=== PATIENT | female | born 1960 | race Caucasian/White ===

== ENCOUNTER 2024-09-17 11:59 | Outpatient (CLI) | payer OTHER, SELFPAY ==
--- NOTE | ~2024-09-17 | CT_ITS ---
EXAMINATION: CT abdomen pelvis w con DATE: 09/17/2024 12:57 INDICATION: Constipation. Left lower quadrant abdominal pain. TECHNIQUE: Computed tomography (CT) of the abdomen and pelvis was performed with 100 mL Omnipaque 350 intravenous contrast. Automated exposure control and iterative reconstruction technique were employe d. The dose-length product was 548.95 mGy-cm. COMPARISON: None. FINDINGS: The visualized portions of lung bases demonstrate mild atelectasis. No pleural effusion. Th e heart size is normal. No pericardial effusion. There is a small sliding hiatal hernia. There is dif fuse hepatic steatosis. Pneumobilia is noted, likely secondary to sphincterotomy. There are changes o f cholecystectomy. The spleen, pancreas, adrenal glands, and left kidney are normal. There is an 11 m m cyst in right kidney. There are scattered diverticula in the colon. There is fat stranding around t he sigmoid colon, consistent with diverticulitis. There are no dilated loops of bowel. The appendix i s normal. There are no pathologically enlarged lymph nodes. There is trace pelvic ascites. There is s evere lumbar spondylosis. There is mild chronic anterior wedging of multiple vertebral bodies. Lumbar levoscoliosis is noted. IMPRESSION: 1. Acute sigmoid diverticulitis. No perforation or abscess. Reviewed, dictated and finalized at location A. ET ACCOUNTANT
--- OUTSIDE RECORDS SUMMARY | 2024-09-17 12:14 | XMS_ITS ---
Author Organization [facility] [facility] Address [address] [place] [address] Care Team Providers Care Tapping Machine Operator Automatic Name Role Phone ANITACONRADO CABALLERO Unavailable [phone] REASON FOR VISIT Skin Lesion Medications Medication SIG (Take, Route, Frequency, Duration) Notes Start Date End Date Status DICYCLOMINE HCL 20 MG TABS for -2 *Reorder from [facility] for eRx and Interaction Alerts* 04/10/2022 Active SUCRALFATE 1GM TAB for -2 *Reorder from [facility] for eRx and Interaction Alerts* 03/28/2022 Active OMEPRAZOLE 40 MG CPDR for -2 *Reorder from [facility] for eRx and Interaction Alerts* 04/03/2022 Active Problems Problem Type SNOMED Code ICD Code Onset Dates Problem Status W/U Status Risk Notes Problem 086572020 Hammer toe of left foot (M20.42) Active confirmed Vital Signs Height 65 in 05/01/2023 Weight 190 lbs 05/01/2023 BMI 31.61 kg/m2 05/01/2023 Height-cm 165.10 cm 05/01/2023 Weight-kg 86.18 kg 05/01/2023 Encounters Encounter Location Date Provider Diagnosis [facility] [address] [place] [address] 05/01/2023 CONRADO GU Abscess of foot without toes, left L02.612 and Hammer toe of left foot M20.42 Assessments Encounter Date Diagnosis (ICD Code) Assessment Notes Treatment Notes Treatment Clinical Notes Section Notes 05/01/2023 Abscess of foot without toes, left (ICD-10 - L02.612) Pt seen and evaluated. Discussed condition and treatment options. Discussed she has a lesion at that location, which could be putting pressure on the nerve. The lesion was incised and debrided, and all the purulence was cleaned and flushed out. No definitive foreign body noted. No need for anesthesia as it was superficial. The site was healed afterward, and pt expressed relief of pain. Pt to call with continued pain, may consider metatarsal pad. 05/01/2023 Hammer toe of left foot (ICD-10 - M20.42) Plan Of Treatment Treatment Notes Assessment Notes Abscess of foot without toes, left Pt se en and evaluated. Discussed condition and treatment options. Discussed she has a lesion at that location, which could be putting pressure on the nerve. The lesion was incised and debrided, and all the purulence was cleaned and flushed out. No definitive foreign body noted. No need for anesthesia as it was superficial. The site was healed afterward, and pt expressed relief of pain. Pt to call with continued pain, may consider metatarsal pad. Next Appt Details Follow Up: prn, Reason: Progress Notes * MOOK CRISOSTOMO ADOB:[birth year] (62 yo F)Acc No.[id number]:05/01/2023 Progress Notes Patient: MOOK AKINS Provider: Nila Gu DPM :1960 A ge:62 Y S ex:Female Date:05/01/2023 Address:[address] [place] [address] Subjective: * Chief Complaints: * S kin Lesion * HPI: F oot Pain: Relates she gets numbness on the lateral side of her left foot, which is unchanged. Relates she started getting burning to the toes on the left foot, near the third and fourth toes. Relates she has had a lot of problems recently with her knee and thinks its related. Relates she felt a knot recently around the area and thinks its related. * ROS: G eneral / Constitutional: Patient denies c hills, fatigue, fever, headache. ? E NT: Patient denies n jose congestion, sore throat. ? R espiratory: Patient denies c ough, chest pain, shortness of breath.? C ardiovascular: Patient denies c hest pain, claudication, palpitations.? G astrointestinal: Patient denies a bdominal pain, constipation, diarrhea, nausea, vomiting. * Medical History: * Surgical History: * Hospitalization/Major Diagno stic Procedure: * Social History: M igrated Social History: M igrated Social History: Smoking : Never , Recorded Date: 04/10/2022. * Medications: T akingOMEPRAZOLE 40 MG CPDR , Notes to Pharmacist: *Reorder from Medispan for eRx and Interaction Alerts*DICYCLOMINE HCL 20 MG TABS , Notes to Pharmacist: *Reorder from [facility] for eRx and Interaction Alerts*SUCRALFATE 1GM TAB , Notes to Pharmacist: *Reorder from [facility] for eRx and Interaction Alerts*Medication List reviewed and reconciled with the patientTaking OMEPRAZOLE 40 MG CPDR , Notes to Pharmacist: *Reorder from [facility] for eRx and Interaction Alerts*Taking DICYCLOMINE HCL 20 MG TABS , Notes to Pharmacist: *Reorder from [facility] for eRx and Interaction Alerts*Taking SUCRALFATE 1GM TAB , Notes to Pharmacist: *Reorder from [facility] for eRx and Interaction Alerts*Medication List reviewed and reconciled with the patient Objective: * Vitals: H t: 65 in, Wt:190lbs, BMI:31.61Index, Wt-k.18 kg, Ht-cm: 165.10 cm, Body Surface Area: 1.99. * Examination: D ermatologic: Skin findings: w arm and dry, no open ulcerations or interdigital macerations, bilateral. T here is a raised, discolored area of tissue sub third webspace / sulcus. When debrided, there is about 0.25cc of thick purulence, when cleaned out intact epithelial skin deep. V ascular: Dorsalis pedis pulse: p alpable, bilateral. Posterior tibial pulse: p alpable, bilateral. Temperature gradient: w arm. N eurologic: Gross sensation i ntact, bilateral. M usculoskeletal: Gait: m ildly antalgic. Foot morphology: r ectus. Deformities: l eft, with lesser digit hammer toes, reducible. Pain elicited with palpation of: t he location of the lesion(s). Assessment: * Assessment: 1. A bscess of foot without toes, left - L02.612 (Primary) 2 . H ammer toe of left foot - M20.42 Plan: * Treatment: * Procedure Codes: 1 0060 DRAINAGE OF SKIN ABSCESS * Follow Up: p rn * Billing Information: * Visit Code: * Procedure Codes: 23212 DRAINAGE OF SKIN ABSCESS. * Sign off status: Completed true * Provider: Nila Gu DPM Date: 0 05/01/2023 Generated for Amber bower/Fabiano/Jayeshitting on: 0 09/17/2024 12:14 PM NEWS WRITER History and Physical Notes * HPI (History of Present Illness) Category Sub-Category Detail Notes Category Not es Foot Pain Relates she get s numbness on the lateral side of her left foot, which is unchanged. Relates she started getting burning to the toes on the left foot, near the third and fourth toes. Relates she has had a lot of problems recently with her knee and thinks its related. Relates she felt a knot recently around the area and thinks its related. Examination Category Sub-Category Detail Notes Category Not es Dermatologic Skin findings: warm and dry, no open ulcerations or interdigital macerations, bilateral There is a raised, discolored area of tissue sub third webspace / sulcus. When debrided, there is about 0.25cc of thick purulence, when cleaned out intact epithelial skin deep Neurologic Gross sensation intact, bilateral Musculoskeletal Gait: mildly antalgic Foot morphology: rectus Deformities: left, with lesser di git hammer toes, reducible Pain elicited with palpation of: the loc ation of the lesion(s) Vascular Dorsalis pedis pulse: palpable, bilateral Temperature gradient: warm Posterior tibial pulse: palpable, bilate ral
--- OUTSIDE RECORDS SUMMARY | 2024-09-17 12:14 | XMS_ITS ---
Author Organization Unknown Address [address] [place], [place] [id number] Phone Care Team Providers Care Dulite Machine Bluer Name Role Phone GEORGES Hutton Attending Unavailable KARUNA BURROWS Primary Unavailable Immunization Immunization Date Status Additional Notes Code Code System influenza, unspecified formulation 05/17/2021 Completed 88 CVX Tdap 01/29/2024 Completed 115 CVX Influenza, recombinant, trivalent, PF 2021 Completed 155 CVX Influenza, recombinant, trivalent, PF 04/12/2024 Completed 155 CVX Influenza, recombinant, quadrivalent, PF 05/16/2020 Completed 185 CVX Influenza, recombinant, quadrivalent, PF 06/07/2021 Completed 185 CVX Influenza, recombinant, quadrivalent, PF 05/16/2022 Completed 185 CVX Influenza, recombinant, quadrivalent, PF 06/16/2023 Completed 185 CVX zoster recombinant 03/10/2024 Completed 187 CVX zoster recombinant 02/09/2024 Completed 187 CVX zoster recombinant 06/10/2024 Completed 187 CVX COVID-19, mRNA, LNP-S, PF, 1 00 mcg/0.5mL dose or 50 mcg/0.25mL dose 08/23/2021 Completed 207 CVX COVID-19, mRNA, LNP-S, PF, 3 0 mcg/0.3 mL dose 01/30/2021 Completed 208 CVX COVID-19, mRNA, LNP-S, PF, 3 0 mcg/0.3 mL dose 02/20/2021 Completed 208 CVX COVID-19, mRNA, LNP-S, PF, 3 0 mcg/0.3 mL dose 11/08/2021 Completed 208 CVX COVID-19, mRNA, LNP-S, bivalent, PF, 30 mcg/0.3 mL dose 06/13/2022 Completed 300 CVX COVID-19, mRNA, LNP-S, PF, sammy-sucrose, 30 mcg/0.3 mL 07/26/2023 Completed 309 CVX COVID-19, mRNA, LNP-S, PF, sammy-sucrose, 30 mcg/0.3 mL 04/16/2024 Completed 309 CVX Results CBC W/O DIFF - Collect Date/ Time: 09/01/2024 10:06 [facility] ID: [id number] [place], [place], [id number] LOINC: 19968-0 Test Value Unit Reference Range Code Code System Flag WBC 7.6 10^3uL L=4.8 H=10.8 RBC 4.64 10^6uL L=4.20 H=5.40 HEMOGLOBIN 13.9 g/dL L=12.0 H=16.0 718-7 LOINC HEMATOCRIT 42.1 VOL% L=37.0 H=47.0 4544-3 LOINC MCV 90.7 fL L=81.0 H=99.0 MCH 30.0 pg L=27.0 H=32.0 MCHC 33.0 g/dL L=32.0 H=36.0 PLATELETS 317 10^3uL L=100 H=400 07376-3 LOINC RDW 11.9 % L=11.7 H=15.5 COMPREHENSIVE METABOLIC PANE L - Collect Date/Time: 09/01/2024 10:06 [facility] ID: [id number] [place], [place], [id number] LOINC: 87465-7 Test Value Unit Reference Range Code Code System Flag FASTING NO BUN 14 mg/dL L=7 H=20 3094-0 LOINC CREATININE 0.70 mg/dL L=0.52 H=1.04 2160-0 LOINC GLUCOSE 115 mg/dL L=74 H=106 2345-7 LOINC H SODIUM 140 mmol/L L=132 H=144 2951-2 LOINC POTASSIUM 4.0 mmol/L L=3.5 H=5.1 2823-3 LOINC CHLORIDE 100 mmol/L L=98 H=107 2075-0 LOINC CO2 29.0 mmol/L L=22.0 H=30.0 2028-9 LOINC ANION GAP 15 L=10 H=20 05815-9 LOINC OSMOLALITY 291 mOs/kG L=280 H=296 50829-8 LOINC BUN/CREAT 20.0 3097-3 LOINC CALCIUM 9.9 mg/dL L=8.3 H=10.5 45079-0 LOINC AST 35 U/L L=15 H=46 1920-8 LOINC ALT 31 U/L L=9 H=72 1742-6 LOINC ALKALINE PHOS 80 U/L L=38 H=126 6768-6 LOINC TOTAL BILI 0.4 mg/dL L=0.2 H=1.3 1975-2 LOINC ALBUMIN 4.8 G/dL L=3.5 H=5.0 1751-7 LOINC TOTAL PROTEIN 8.8 g/L L=6.3 H=8.2 2885-2 LOINC H A/G RATIO 1.2 71934-1 LOINC AGE 64 57154-4 LOINC eGFR NON-AFR 90 ml/min eGFR AFR AMER 109 ml/min Social History Type Status Start Date End Date Code Code Syst em Smoking History Never smoker (Never Smoked) 491499351 SNOMED CT Smoking History Unknown if ever smoked [address] Sex Female Medications Medication Start Date End Date Route Frequency Dose Code Code System Medication Instructions Home Meds Dicyclomine HCl 10MG Oral Capsule 09/26/2017 Unknown ORAL NEEDED 10 MILLIGRAMS 554368 RxNorm TAKE 10 MILLIGRAMS ORAL NEEDED Vitamin D 1000IU Oral Tablet 09/26/2017 Unknown ORAL ONCE A DAY 1000 INTERNATIONAL UNITS 19930110 RxNorm TAKE 1000 INTERNATIONAL UNITS ORAL ONCE A DAY Carafate 1GM Oral Tablet 12/28/2021 Unknown ORAL FOUR TIMES A DAY 1 GM 20800417 RxNorm TAKE 1 GM ORAL FOUR TIMES A DAY MiraLAX 17GM/1Dose Oral Powder for Solution 12/28/2021 Unknown ORAL ONCE A DAY 1 unit(s) 354203 RxNorm TAKE 1 EACH ORAL ONCE A DAY Omeprazole 40MG Oral Capsule, Delayed Release 12/28/2021 Unknown ORAL TWICE A DAY 40 MILLIGRAMS 20020919 RxNorm TAKE 40 MILLIGRAMS ORAL TWICE A DAY ProAir HFA 0.09MG/1Actu ation Inhalation Suspension 12/28/2021 Unknown INHALAT ION NEEDED EVERY 4 HOURS 1 unit(s) 649308 RxNorm 1 EACH INHALATION NEEDED EVERY 4 HOURS Hospital Discharge Instructions Should you have any questions prior to discharge, please contact a member of your healthcare team. If you have left the hospital and have any questions, please contact your primary care physician. Reason For Referral No Data Found Allergies and Adverse Reactions Allergy Substance Reaction Severity Start Date Concern Status Code Code System SULFA (sulfonamide) NAUSEA (SNOMED-CT: null) Moderate Active SULFA (sulfonamide) Active 22149180 SNOMED-CT DARVON COMPOUND-65 Moderate Active STATINS (HMG-COA REDUCTASE INHIBITORS) Active DARVOCET NAUSEA (SNOMED-CT: null) Active No Known Drug Allergies Active 814627616 SNOMED-CT Plan of Treatment Upper GI W Small Intestine 02/19/2024 Encounters Encounter Diagnosis Start Date Code Code Sys tem Left lower quadrant pain 09/01/2024 SNO MED-CT Personal Care Team Section Performer Name Performer Role Active Date Inactive Christiano Ash PCP - Primary care physician 2022-08-19
--- OUTSIDE RECORDS SUMMARY | 2024-09-17 12:15 | XMS_ITS | Clinical Summary ---
Author Organization [facility] Address [address] [place] [address] Phone Care Team Providers Care Piece Cutter Name Role Phone Lindsey Brannon MD Primary Care Provider [phone] Allergies Active Allergy Reactions Criticality Noted Date Comments Other Unknown High Darvocet Medications ibuprofen (MOTRIN) 200 MG Tablet Take 200 mg by mouth every 8 hours as needed. 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 Gender Identity Not on file Sexual Orientation Not on file Last Filed Vital Signs Vital Sign Reading Time Taken Comments Blood Pressure - - Pulse - - Temperature 36.4 C (97.5 F) 02/18/2018 11:41 AM CDT Respiratory Rate - - Oxygen Saturation - - Inhaled Oxygen Concentration - - Weight 87.1 kg (192 lb) 02/18/2018 11:41 AM CDT Height 165.1 cm (5' 5 ) 02/18/2018 11:41 AM CDT Body Mass Index 31.95 02/18/2018 11:41 AM CDT Plan of Treatment Health Maintenance Due Date Last Done Comments Hepatitis C Virus (HCV) Screening 1960 TdaP Immunization 1960 Colonoscopy 2007 Colorectal Cancer Screening 2007 Cologuard 2012 Immunochemical Fecal Occult Blood 2012 Mammogram 2012 Pneumococcal Immunization (5 0+ years) (1 of 1 - PCV) 2012 Zoster Immunization (1 of 2) 2012 Influenza Immunization (#1) 2024 SARS-COV-2 Immunization (1 - 2023- season) 2024 Respiratory Syncytial Virus (RSV) Immunization (Adult) (1 - 1-dose 75+ series) 2037 Hepatitis B Immunization Aged Out No longer eligible based on patient's age to complete this topic Meningococcal Immunization (ACWY) Aged Out No longer eligible based on patient's age to complete this topic Pneumococcal Immunization Combined Aged Out No longer eligible based on patient's age to complete this topic Rotavirus Immunization Aged Out No lo nger eligible based on patient's age to complete this topic Insurance [facility] Care Teams Piece Cutter Relationship Specialty [place] [address] [place] [address] PCP - General Internal Medicine 06/25/17
--- OUTSIDE RECORDS SUMMARY | 2024-09-17 12:15 | XMS_ITS | Patient Health Record ---
Author Organization [facility] Address [address] [place] [address] Care Team Providers Care Education Administrator Name Role Phone CONRADO GU Unavailable [phone] Reason For Referral No Information Medications Medication SIG (Take, Route, Frequency, Duration) [...] Problem Status W/U Status Risk Notes Problem 711446128 Hammer toe of left foot (M20.42) Active confirmed Problem Tarsal tunnel syndrome (12817802) Tarsal tunnel syndrome, left lower limb (G57.52) 04/10/2022 Active confirmed Problem History of malignant neoplasm (984863214) Personal history of malignant neoplasm, unspecified (Z85.9) 04/10/2022 Active confirmed Plan Of Treatment No Information Insurance Providers Payer Name Payer Address Payer Phone Subscriber Number Group Number Insured Name Patient Relationship to Insured Coverage Start Date Coverage End Date [facility] [id number] [place] [address] [id number] MOOK CRISOSTOMO Self - patient is the insured
--- OUTSIDE RECORDS SUMMARY | 2024-09-17 12:16 | XMS_ITS | Clinical Summary ---
Author Organization [facility] Address [address] [place] [address] Care Team Providers Care Shearing Shed Hand Name Role Phone Lebron Lion DPM Unavailable [phone] Delicia Chase APNP Primary Care Provide r Jeanine Vasquez MD Unavailable Allergies Active Allergy Reactions Criticality Noted Date Comments Statins Joint Pain 05/01/2023 Medications omeprazole (PRILOSEC) 20 MG capsule Take 1 capsule (20 mg total) by mouth daily. Active dicyclomine (BENTYL) 20 MG tablet Take 1 tablet (20 mg total) by mouth. Active furosemide (LASIX) 20 MG tablet Take 1 tablet (20 mg total) by mouth daily. Take one tablet daily as needed for swelling 7 tablet 4 Active Additional Information Patient not taking.Reported on 03/11/2024 red yeast rice extract 600 MG Cap Take 500 mg by mouth daily. Active metoprolol succinate ER (TOPROL-XL) 25 MG 24 hr tablet Take 1 tablet (25 mg total) by mouth daily. 30 tablet 11 4 Active Active Problems Problem Noted Date Diagnosed Date Acute medial meniscus tear of left knee 05/13/20 23 Paroxysmal atrial fibrillation (CMS/HCC HHS/HCC) 04/30/2023 Chest discomfort 04/30/2023 Palpitations 04/30/2023 Primary osteoarthritis of left knee 04/29/2023 Lumbar radiculopathy 07/23/2021 Other spondylosis, cervical region 07/23/2021 Right foot pain 12/09/2018 Encounters Date Type Department Care Team Description 08/06/2024 Telephone [facility] [address] [place] [phone] Jeanine Vasquez MD Refill Request from Last 3 Months Family History Medical History Relation Comments No Known Problems Father Emphysema Mother Relation Status Comments Father Mother Social History Tobacco Use Types Packs/Day Years Used Date Smoking Tobacco: Never Smokeless Tobacco: Never Tobacco Cessation:Counseling Given: Not Answered Alcohol Use Standard Drinks/Week Comments Not Currently 0 (1 standard drink = 0.6 oz pur e alcohol) Comments Unknown Sex and Gender Information Value Date Recorded Sex Assigned at Female 04/29/2023 3:57 PM CDT Legal Sex Female 6:38 PM CDT Gender Identity Female 04/29/2023 3:57 PM CDT Sexual Orientation Straight 04/29/2023 3: 57 PM CDT Last Filed Vital Signs Vital Sign Reading Time Taken Comments Blood Pressure 120/74 03/15/2024 1:25 PM CDT Pulse 78 03/15/2024 1:25 PM CDT Temperature - - Respiratory Rate 16 03/15/2024 1:25 PM CDT Oxygen Saturation 96% 03/15/2024 1:25 PM CDT Inhaled Oxygen Concentration - - Weight 91.5 kg (201 lb 12.8 oz) 03/15/2024 1:25 PM CDT Height 165.1 cm (5' 5 ) 03/15/2024 1:25 PM CDT Body Mass Index 33.58 03/15/2024 1:25 PM CDT Plan of Treatment Upcoming Encounters Date Type Department Care Team (Late st Contact Info) Description 11/19/2024 9:30 AM CDT Office Visit [facility] [address] [place] [phone] Danish Matute, PA-C [address] [place] [phone] 03/17/2025 10:15 AM CDT Office Visit [facility] [address] [phone] Jeanine Vasquez MD [address] [place] [address] Health Maintenance Due Date Last Done Comments Colorectal Cancer Screening Colonoscopy (10 Years) 1962 Annual Physical 1965 Hepatitis C 1980 Mammogram Screening 2002 RSV Immunization or 60+ Years (1 - Risk 60-74 years 1-dose series) 2022 COVID-19 Vaccine ( season) 2024 07/26/2023, 06/13/2022, 11/08/2021, Additional history exists Zoster Vaccines (2 of 2) 05/05/2024 03/10/2024 Influenza Adult (#1) 2024 06/16/2023, 05/16/2022, 06/07/2021, Additional history exists DTaP, Tdap and Td Vaccines (2 - Td or Tdap) 01/28/2034 01/29/2024 Meningococcal B Vaccine Aged Out No l onger eligible based on patient's age to complete this topic Meningococcal Vaccine Aged Out No nicholas luh eligible based on patient's age to complete this topic Pneumococcal Vaccine: Pediatrics (0 to 5 Years) and At-Risk Patients (6 to 64 Years) Aged Out No longer eligible based on patient's age to complete this topic RSV Immunizations Under 20 Months Aged Out No longer eligible based on patient's age to complete this topic Insurance [facility] Care Teams Shearing Shed Hand Relationship Specialty Start Date End Date Delicia Chase APNP [address] [place] [address] PCP - General NURSE PRACTITIONER 04/01/23 Lebron Lion DPM [address] [place] [phone] PODIATRY/SURGERY 04/01/23 Jeanine Vasquez MD [address] [place] [address] Consulting Physician CARDIOVASCULAR DISEASE 11/05/23
--- OUTSIDE RECORDS SUMMARY | 2024-09-17 12:16 | XMS_ITS ---
Author Organization Unknown Address [address] [place], [place] [id number] Phone Care Team Providers Care Front Office Agent Name Role Phone SAI BURGER Attending Unavailable KARUNA BURROWS Primary Unavailable Immunization [...] mL 04/16/2024 Completed 309 CVX Results CBC W/ DIFF - Collect Date/T saji: 12/29/2023 08:42 [facility] ID: [id number] [id number] [place], [place], [id number] LOINC: 24570-9 Test Value Unit Reference Range Code Code System Flag WBC 4.8 10^3uL L=4.8 H=10.8 RBC 4.57 10^6uL L=4.20 H=5.40 HEMOGLOBIN 13.9 g/dL L=12.0 H=16.0 718-7 LOINC HEMATOCRIT 41.4 VOL% L=37.0 H=47.0 4544-3 LOINC MCV 90.6 fL L=81.0 H=99.0 MCH 30.4 pg L=27.0 H=32.0 MCHC 33.6 g/dL L=32.0 H=36.0 PLATELETS 274 10^3uL L=100 H=400 20172-4 LOINC RDW 12.1 % L=11.7 H=15.5 %GRAN 48.9 % L=40.0 H=70.0 52815-2 LOINC %LYMPH 40.0 % L=20.0 H=45.0 736-9 LOINC %MONO 7.8 % L=2.0 H=10.0 04969-1 LOINC %EOS 2.7 % L=0.0 H=6.0 713-8 LOINC %BASO 0.4 % L=0.0 H=3.0 706-2 LOINC #NEUT 2.3 10^3uL L=1.9 H=7.6 05490-2 LOINC #LYMPH 1.9 10^3uL L=0.9 H=4.9 80260-9 LOINC #MONO 0.4 10^3uL L=0.1 H=0.9 45340-3 LOINC #EOS 0.1 10^3uL L=0.0 H=0.6 712-0 LOINC #BASO 0.02 10^3uL L=0.00 H=0.10 14236-2 LOINC #IM GRANS 0.0 10^3uL L=0.0 H=7.0 38176-4 LOINC %IM GRANS 0.2 % L=0.0 H=5.0 27959-8 LOINC %NRB 0.0 L=0.0 H=0.2 70098-5 LOINC #NRB 0.000 L=0.000 H=0.012 54374-5 LOINC MANUAL DIFF NOT INDICATED RBC MORPH NOT INDICATED COMPREHENSIVE METABOLIC PANE L - Collect Date/Time: 12/29/2023 08:42 [facility] ID: [id number] [id number] [place], [place], [id number] LOINC: 59531-6 Test Value Unit Reference Range Code Code System Flag FASTING YES BUN 19 mg/dL L=7 H=20 3094-0 LOINC CREATININE 0.70 mg/dL L=0.52 H=1.04 2160-0 LOINC GLUCOSE 108 mg/dL L=74 H=106 2345-7 LOINC H SODIUM 139 mmol/L L=132 H=144 2951-2 LOINC POTASSIUM 4.1 mmol/L L=3.5 H=5.1 2823-3 LOINC CHLORIDE 101 mmol/L L=98 H=107 2075-0 LOINC CO2 28.0 mmol/L L=22.0 H=30.0 2028-9 LOINC ANION GAP 14 L=10 H=20 03438-3 LOINC OSMOLALITY 291 mOs/kG L=280 H=296 76293-7 LOINC BUN/CREAT 27.1 3097-3 LOINC CALCIUM 9.8 mg/dL L=8.3 H=10.5 65997-7 LOINC AST 45 U/L L=15 H=46 1920-8 LOINC ALT 42 U/L L=9 H=72 1742-6 LOINC ALKALINE PHOS 92 U/L L=38 H=126 6768-6 LOINC TOTAL BILI 0.6 mg/dL L=0.2 H=1.3 1975-2 LOINC ALBUMIN 4.8 G/dL L=3.5 H=5.0 1751-7 LOINC TOTAL PROTEIN 8.5 g/L L=6.3 H=8.2 2885-2 LOINC H A/G RATIO 1.3 29733-2 LOINC AGE 63 15981-8 LOINC eGFR NON-AFR 90 ml/min eGFR AFR AMER 109 ml/min PRO BNP - Collect Date/Time: 12/29/2023 08:42 [facility] ID: [id number] [place], [place], [phone] LOINC: 37281-1 Test Value Unit Reference Range Code Code System Flag Pro BNP2 < 20 pg/mL L=0 H=900 66974-3 LOINC Social History Type Status Start Date End Date Code Code Syst em Smoking History Never smoker (Never Smoked) 562245313 SNOMED CT Smoking History Unknown if ever smoked [address] Sex Female Medications Medication Start Date End Date Route Frequency Dose Code Code System Medication Instructions Home Meds Dicyclomine HCl 10MG Oral Capsule 09/26/2017 Unknown ORAL NEEDED 10 MILLIGRAMS 231539 RxNorm TAKE 10 MILLIGRAMS ORAL NEEDED Vitamin D 1000IU Oral Tablet 09/26/2017 Unknown ORAL ONCE A DAY 1000 INTERNATIONAL UNITS 929800 RxNorm TAKE 1000 INTERNATIONAL UNITS ORAL ONCE A DAY Carafate 1GM Oral Tablet 12/28/2021 Unknown ORAL FOUR TIMES A DAY 1 GM 20800417 RxNorm TAKE 1 GM ORAL FOUR TIMES A DAY MiraLAX 17GM/1Dose Oral Powder for Solution 12/28/2021 Unknown ORAL ONCE A DAY 1 unit(s) 078990 RxNorm TAKE 1 EACH ORAL ONCE A DAY Omeprazole 40MG Oral Capsule, Delayed Release 12/28/2021 Unknown ORAL TWICE A DAY 40 MILLIGRAMS 20020919 RxNorm TAKE 40 MILLIGRAMS ORAL TWICE A DAY ProAir HFA 0.09MG/1Actu ation Inhalation Suspension 12/28/2021 Unknown INHALAT ION NEEDED EVERY 4 HOURS 1 unit(s) 388377 RxNorm 1 EACH INHALATION NEEDED EVERY 4 [...] (SNOMED-CT: null) Moderate Active SULFA (sulfonamide) Active 05198767 SNOMED-CT DARVON COMPOUND-65 Moderate Active STATINS (HMG-COA REDUCTASE INHIBITORS) Active DARVOCET NAUSEA (SNOMED-CT: null) Active No Known Drug Allergies Active [id number] SNOMED-CT Plan of Treatment Upper GI W Small Intestine 02/19/2024 Encounters Encounter Diagnosis Start Date Code Code Sys tem Paroxysmal atrial fibrillation 12/29/2023 SNOMED-CT Personal Care Team Section Performer Name Performer Role Active Date Inactive Christiano Ash PCP - Primary care physician 2022-08-19
== END 2024-09-17 12:00 | disposition home or self-care (01) ==
DX: K59.00 Constipation, unspecified (principal); K57.92 Diverticulitis of intestine, part unspecified, without perforation or abscess without bleeding
CPT/HCPCS: 74177; Q9967